=== PATIENT | female | born 1995 | race African-American/Black ===

== ENCOUNTER → 2017-08-20 | Outpatient (CLI) | payer MEDICAID | LOC: LAB 11:20 | PROVIDERS: ATTEND Physician Assistant | DX: J02.9 Acute pharyngitis, unspecified (principal) | CPT/HCPCS: 87070 ==

== ENCOUNTER 2018-07-29 07:42 | Emergency (ER) | payer MEDICAID ==
[2018-07-29 07:48] VITALS: BP 152/78
--- NOTE | 2018-07-29 08:22 | ER Document Report ---
ED Skin Rash/Insect Bite/Abscs - General Chief Complaint: Rash Stated Complaint: RASH Time Seen by Provider: 07/29/18 07:58 Mode of Arrival: Ambulatory Information source: Patient, Relative Notes: Patient is a 23-year-old female comes emergency room with a rash onset for approximately 1 week. Patient states it started in the lower extremities has been mostly from the knees down she has had a few rare occasions where it was up on the thigh and also of all seem to dried up. The rash on the lower extremities appeared to her like mosquito bites but then he started forming bulla water-filled blisters as they matured. It is very pruritic she is only used anti-itch cream on the lesions without any success. Patient denies any past medical history. She lives with her mother, does not work and is not been exposed to anything that she knows of. Mother does not have any signs or symptoms of these type of presentation. Mother also denies any family history of autoimmune diseases or disorders. TRAVEL OUTSIDE OF THE [place] IN LAST 30 DAYS: No - HPI Patient complains to provider of: Skin rash/lesion Onset: Last week Onset/Duration: Sudden, Persistent, Worse Quality of pain: Achy Severity: Mild Skin Character: Bullous, Drainage, Macules, Papules, Rash Skin Temperature: Cool Quality of rash: Itchy Identify cause: No Similar symptoms previously: No Recently seen / treated by doctor: No Past Medical History - General Information source: Patient, Parent - Social History Smoking Status: Never Smoker Cigarette use (# per day): No Chew tobacco use (# tins/day): No Smoking Education Provided: No Frequency of alcohol use: None Drug Abuse: None Lives with: Parents Family History: Reviewed & Not Pertinent Patient has suicidal ideation: No Patient has homicidal ideation: No Renal/ Medical History: Denies: Hx Peritoneal Dialysis Review of Systems - Review of Systems Constitutional: No symptoms reported EENT: No symptoms reported Cardiovascular: No symptoms reported Respiratory: No symptoms reported Gastrointestinal: No symptoms reported Genitourinary: No symptoms reported Female Genitourinary: No symptoms reported Musculoskeletal: No symptoms reported Skin: See HPI, Rash Hematologic/Lymphatic: No symptoms reported Neurological/Psychological: No symptoms reported -: Yes All other systems reviewed and negative Physical Exam - Vital signs Vitals: Temp Pulse Resp BP Pulse Ox 98.6 F 57 L 16 152/78 H 100 07/29/18 07:46 07/29/18 07:46 07/29/18 07:46 07/29/18 07:46 07/29/18 07:46 Interpretation: Hypertensive - Notes Notes: Well-nourished well-developed obese female who is in no apparent distress but does appear somewhat uncomfortable. - General General appearance: Alert In distress: None - HEENT Head: Normocephalic, Atraumatic Eyes: Normal Conjunctiva: Normal Cornea: Normal Extraocular movements intact: Yes Eyelashes: Normal Pupils: PERRL Ears: Normal External canal: Normal. No: Blood in canal, Cerumen impaction, Erythema, Swollen Tympanic membrane: Normal. No: Bulging, Hemotympanum Sinus: Normal. No: Abnormal, Frontal, Mastoid, Maxillary, Redness, Swelling, Tenderness Nasal: Normal. No: Bloody discharge, Purulent discharge, Clear rhinorrhea Mouth/Lips: Normal, Other - Examination of the oral cavity does not show any type of lesions that might be associated with a rash. Mucous membranes: Normal, Moist Pharynx: Normal. No: Blood in hypopharynx, Erythema, Exudate, Peritonsillar abscess, Post nasal drainage, Tonsillar hypertrophy, Uvular edema, Potential airway comprom. Neck: Normal, Supple. No: Anterior cervical chain, Posterior cervical chain, Brudzinski, Carotid bruit, Kernig's, Lymphadenopathy, Meningismus, Neck mass, Shotty nodes, Thyroid nodule - Respiratory Respiratory status: No respiratory distress Chest status: Nontender Breath sounds: Normal. No: Rales, Rhonchi, Stridor, Wheezing Chest palpation: Normal - Cardiovascular Rhythm: Regular Heart sounds: Normal auscultation Murmur: No - Back Back: Normal. No: Nontender, Scars, Scoliosis, Wounds - Extremities General upper extremity: Normal inspection, Nontender, Tender, Normal color, Normal ROM, Normal strength, Normal temperature General lower extremity: Normal inspection, Tender, Normal ROM, Normal strength , Normal temperature, Normal weight bearing Calf: Tender, Other - Examination bilateral lower extremities from the knees down shows a rash that is macular papular each of the lesions appear to be or start like a mosquito bite type presentation her lower legs are peppered with it they be mature into a bullae/water-filled blister as they get older. The rest of her body is clean. The lesions spare the toes and the and the soles no signs of tracking. The ER a 2 mm hard spot in the center with an erythematous base which branches out to a slightly modular set crew member erythema. As a progressively get older he may start to shrink up inform the bullae. But I start out as small and then expand to largest on her lower calf area was about 2 cm across and about 1 cm high. - Neurological Neuro grossly intact: Yes Cognition: Normal Orientation: AAOx4 [place] Coma Scale Eye Opening: Spontaneous Ana Coma Scale Verbal: Oriented [place] Coma Scale Motor: Obeys Commands Ana Coma Scale Total: 15 Speech: Normal - Skin Skin Temperature: Warm Skin Color: Erythema Skin irregularity: Erythema Location of irregularity: Extremities Character of irregularity: Maculopapular, Confluent, Polycyclic, Erythematous Irregularity with: Swelling Course - Re-evaluation Re-evalutation: 07/29/18 08:[address] London also come and take a look. This time he agrees to try treatment with little antibiotic and steroid. I have had a talk with patient and mother stating that 90 Naprosyn rashes are benign however there is like 1% that are very concerning and could possibly lead to future problems and possibly even . I told him I was not trying to scare them but we do not know what this rash is working to try treating it if it goes away great if it does not she needs to see a metal riveter in relatively soon. Patient states she does not have a doctor so we will give her the community clinic to start with. Our concerns are this could be a presentation of pemphigus vulgaris or something else. Given the light that this is relatively new she should have it evaluated as soon as possible. I have informed her to take close-up pictures of the whole presentation of lesions in different stages and keep along with that. Also to write down anything she can think of is when it started what started first and advancing of how they do. We are going to attempt to run her on a steroid taper for 6 days and I will put her on some doxycycline 100 mg twice a day for 10 days. And a Diflucan pill. - Vital Signs Vital signs: Temp Pulse Resp BP Pulse Ox 98.6 F 57 L 16 152/78 H 100 07/29/18 07:46 07/29/18 07:46 07/29/18 07:46 07/29/18 07:46 07/29/18 07:46 Discharge - Discharge Clinical Impression: Rash and nonspecific skin eruption Condition: Stable Disposition: HOME, SELF-CARE Instructions: Viral Rash ([facility]) Additional Instructions: As we have discussed we cannot tell you what is caused this. We are attempting to treat it by 2 different methods of bacterial type of presentation as well as an inflammatory tumor putting you on a steroid taper and an antibiotic. I am giving you a good Rx card which if you go to the pharmacy with that the antibiotic I am putting you on if you take the card [facility] as the cheapest to be 24 hours and 34 since. [facility] 24 hours and [facility] and [facility] 24 hours and $0.75. [facility] will be $30.74 so you can choose. If you should have any concerns or problems she can return to ER and let us recheck you again. We are given you the information to the community clinic this is a free clinic if you do not have an insurance or physician you may go there and have them take a look at it as well. As we discussed it is highly important he have someone follow-up on this. Prescriptions: Doxycycline Hyclate 100 mg PO BID #20 capsule Fluconazole [Diflucan] 150 mg PO ONCE PRN #1 tablet PRN Reason: Prednisone [Sterapred Ds] 10 mg PO ASDIR PRN 6 Days #1 tab.ds.pk PRN Reason:
== END 2018-07-29 08:46 | disposition home or self-care (01) ==
LOC: ER 07:42
DX: R21 Rash and other nonspecific skin eruption (principal); L29.8 Other pruritus; E66.9 Obesity, unspecified; Z68.41 Body mass index [BMI] 40.0-44.9, adult
CPT/HCPCS: 99282